=== PATIENT | male | born 1975 | race Caucasian/White ===

== ENCOUNTER 2018-11-27 09:54 | Emergency (ER) | payer OTHER ==
[~2018-11-27] VITALS: Ht 175.3 cm; Wt 85.7 kg
[2018-11-27] MEDS ORDERED: ZYRTEC10 M5 PO (10:04)
[2018-11-27] MEDS ORDERED: VALTREX 500 MG500 M1 PER TUBE (10:04)
[2018-11-27 10:38] LABS: ABSOLUTE EOSINOPHILS 0.1 thou/uL (0.0-0.7); ABSOLUTE MONOCYTES 0.4 thou/uL (0.0-1.2); ABSOLUTE NEUTROPHILS 2.5 thou/uL (1.6-8.1); BASOPHILS 0.8 %; EOSINOPHILS 2.2 %; HEMOGLOBIN 15.5 gm/dL (14.0-18.0); LYMPHOCYTES 39.1 %; MCH 33.1 pg (26.0-34.0); MCHC 35.1 g/dL (28.0-37.0); MCV 94.2 fL (80.0-100.0); MONOCYTES 8.2 %; MPV 8.5 fl. (7.2-11.1); NUCLEATED RBCS 0 /100WBC; PLATELET COUNT* 224 thou/uL (150-400); POLYS 49.7 %; RBC 4.67 mil/uL (4.50-6.00); RDW-CV 12.4 % (10.5-14.5)
[2018-11-27 10:41] LABS: ANION GAP 6 mmol/L (7-16); BUN 12 mg/dL (7-18); CALCIUM 8.8 mg/dL (8.5-10.1); CHLORIDE 103 mmol/L (98-107); CO2 30 mmol/L (21-32); CREATININE 1.2 mg/dL (0.6-1.3); GLUCOSE 101 mg/dL (70-99); POTASSIUM 4.1 mmol/L (3.5-5.1); SODIUM 139 mmol/L (136-145)
[2018-11-27 10:43] LABS: PROTIME 10.4 Seconds (9.20-11.50)
[2018-11-27 10:52] LABS: ALKALINE PHOSPHATASE 64 U/L (46-116); LIPASE 68 U/L (73-393); NT-PRO BRAIN NAT PEPTIDE 12 pg/mL (<300); SGOT 26 U/L (15-37); SGPT 46 U/L (30-65); TOTAL BILIRUBIN 0.6 mg/dL (<0.1-1.0); TOTAL PROTEIN 7.6 g/dL (6.4-8.2); TROPONIN-I LEVEL <0.06 ng/mL (<0.06)
[2018-11-27 13:31] VITALS: BP 138/78
--- NOTE | 2018-11-27 15:00 | EKG ---
[place] [address] ELECTROCARDIOGRAM REPORT Name: ALANNAH SHARMA [facility] [place] [id number] Admission: 11/27/18 Attend Phys: Discharge: 11/27/18 Date of : 75 Report #: [id number] THIS REPORT FOR: //name// [facility] ED Test Date: 2018-11-27 Test Time: 09:59:46 Pat Name: ALANNAH SHARMA Department: Room: Gender: M Cover Marker: DELFINA : 1975 Requested By: Chris Burgess Order Number: [id number] MD: Kurtis Shetty Measurements Intervals [place] Rate: 60 P: -4 [place]: 152 QRS: 2 QRSD: 87 T: 3 QT: 404 QTc: 404 Interpretive Statements Sinus rhythm Baseline wander in lead(s) I,V3 No previous ECG available for comparison Electronically Signed On 11-27-2018 15:00:24 CDT by Kurtis Shetty [email or web address] <ELECTRONICALLY SIGNED> By: Kurtis Shetty MD, [facility] 11/27/18 1500 [id number] Kurtis Shetty MD, FACC /EPI
== END 2018-11-27 13:31 | disposition home or self-care (01) ==
LOC: M.ERS 09:54
PROVIDERS: Emergency Medicine
DX: R07.89 Other chest pain (principal); K21.9 Gastro-esophageal reflux disease without esophagitis; B00.1 Herpesviral vesicular dermatitis; Z88.8 Allergy status to other drugs, medicaments and biological substances

== ENCOUNTER → 2018-12-09 | Outpatient (CLI) | payer OTHER ==
[~2018-12-09] MED LIST: VALTREX 500 MG500 M1 PER TUBE; ZYRTEC10 M5 PO
--- NOTE | 2018-12-09 16:13 | EXE ---
[place] [address] STRESS ECHOCARDIOGRAM Name: ALANNAH SHARMA Room: [facility]#: [id number] Admission: 12/09/18 Attend Phys: Shadi Matt DO Discharge: Date of : 75 Date of Service: 12/09/18 1613 Report #: [id number] THIS REPORT FOR: //name// APPROVED REPORT Study performed: 12/09/2018 14:12:11 Exam: Stress Echocardiogram Indication: Chest pain , Dyspnea Patient Location: Out-Patient Stress Nurse: Joana Love RN Supervising Physician: Suresh Poon MD Ht: 5 ft 9 in HR: 76 bpm BP: 146/80 mmHg Medical History Cardiac Risk Factors: Tobacco History (Former) Procedure The patient underwent an Exercise Stress Test using the Adryan Protocol. Blood pressure, heart rate, and EKG were monitored. An Echocardiogram was performed by windows migration technician in four stages in quad fashion. At peak stress, four selected images were obtained and placed side by side with resting images for comparison. Stress Test Details Stress Test: Exercise stress testing was performed using a Adryan protocol. HR Resting HR: 76 bpm Max Heart Rate (APMHR): 177 bpm Max HR Achieved: 169 bpm Target HR (85% APMHR): 150 bpm % of APMHR: 95 Recovery HR: 94 bpm HR response to stress: Normal HR response to stress BP Resting BP: 146/80 mmHg Max BP: 191/65 mmHg Recovery BP: 167/97 mmHg BP response to stress: Normal blood pressure response to stress. ECG Resting ECG: Sinus Rhythm Stress ECG: Sinus Tachycardia [address] [address] STRESS ECHOCARDIOGRAM Name: ALANNAH SHARMA Room: [facility]#: [id number] Admission: 12/09/18 Attend Phys: Shadi Matt DO Discharge: Date of : 75 Date of Service: 12/09/18 1613 Report #: [id number] ST Change: None Arrhythmia: None Recovery ECG: Sinus Rhythm Recovery ST Change: None Recovery Arrhythmia: None Clinical Reason for Termination: Completed protocol Exercise duration: 7 min 18 sec Highest Stage Achieved: Stage 3: 3.4 mph at 14% grade. Exercise capacity: 9.06 METs The patient tolerated standard Adryan protocol exercise without significant symptoms. Stress ECG Conclusion The baseline 12-lead EKG show sinus rhythm without significant ST or T wave abnormality. EKGs obtained during and post exercise stress show sinus rhythm and sinus tachycardia with no significant ST or T wave changes when compared to baseline. There were no stress-induced arrhythmias. Pre-Stress Echo The resting Echocardiogram showed normal left ventricular contractility with an estimated Ejection Fraction of about 55-60%. Post-Stress Echo The stress Echocardiogram showed normal left ventricular contractility with an estimated Ejection Fraction of about >70%. Normal augmentation of wall motion in all segments on post stress images. Clinical No clinical or ECG evidence for ischemia. Conclusion Clinical Response: Non-ischemic Exercise Capacity: Average Stress ECG Response: Non-ischemic Stress Echo Images: [place] [address] STRESS ECHOCARDIOGRAM Name: ALANNAH SHARMA Room: [facility]#: [id number] Admission: 12/09/18 Attend Phys: Shadi Matt DO Discharge: Date of : 75 Date of Service: 12/09/181612 Report #: [id number] Other Information Study Quality: Good <ELECTRONICALLY SIGNED> By: Suresh Poon MD, FACC 12/09/181612 12 12 Suresh Poon MD, FACC /INF
== END ==
LOC: M.CRD 13:45
DX: R07.9 Chest pain, unspecified (principal); R06.00 Dyspnea, unspecified; R00.0 Tachycardia, unspecified

== ENCOUNTER → 2018-12-19 | Outpatient (CLI) | payer OTHER ==
--- NOTE | 2018-12-23 08:11 | PF ---
[address] [address] PULMONARY FUNCTION REPORT Name: ALANNAH SHARMA [facility]: [facility].#: [id number] Admission: 12/19/18 Attend Phys: Shadi Matt DO Discharge: Date of : 75 Report #: [id number] THIS REPORT FOR: //name// CC: Shadi Matt PULMONARY FUNCTION TEST A spirogram shows normal FEV1, normal forced vital capacity with normal ratio. Midflow rates were within normal as well and flow volume loop were normal. Lung capacity was normal as well at 83%. Diffusion capacity was normal. IMPRESSION: Normal pulmonary function test. <ELECTRONICALLY SIGNED> By: Reyes Chacon MD 12/23/18 0811 1609 [id number] Ravi Jacques MD /nt
== END ==
LOC: M.PUL 11:30
DX: R06.00 Dyspnea, unspecified (principal)

== ENCOUNTER → 2019-07-02 | Outpatient (CLI) | payer OTHER | LOC: M.ULTRA 10:51 | DX: N50.3 Cyst of epididymis (principal); N50.89 Other specified disorders of the male genital organs ==

== ENCOUNTER → 2020-10-07 | Outpatient (CLI) | payer OTHER | LOC: M.MRI 08:02 | PROVIDERS: ATTEND Family Medicine | DX: M47.812 Spondylosis without myelopathy or radiculopathy, cervical region (principal); M48.02 Spinal stenosis, cervical region ==